=== PATIENT | male | born 1970 | race Caucasian/White ===

== ENCOUNTER 2024-05-14 04:07 | Inpatient (IN) | payer OTHER ==
[2024-05-11 10:36] VITALS: BMI 29.1
[2024-05-14] MEDS ORDERED: GENTAMICIN SO4 80 MG/2 ML VIAL ONE (06:36)
[2024-05-14] MEDS ORDERED: VANCOMYCIN 1,000 MG VIAL (RESTRICTED TO ID ONLY) ONE (06:36)
[2024-05-14] MEDS ORDERED: BUPIVACAINE LIPOSOME/PF (EXPAREL) 266 MG/20 ML VIAL ONE (06:36)
[2024-05-14] MEDS ORDERED: LIDOCAINE 1%/EPI 1:100000 (20 ML MULTI DOSE VIAL) ONE (06:36)
[2024-05-14] MEDS ORDERED: BUPIVACAINE HCL/PF 0.5% (5MG/ML) 10 ML VIAL ONE (06:36)
[2024-05-14] MEDS: LIDOCAINE 1%/EPI 1:100000 (20 ML MULTI DOSE VIAL) IJ ONE ×2 (07:02→08:58)
[2024-05-14] MEDS: VANCOMYCIN 1 GM in D5W (PRE-DOCKED) 1,000 MG/250 ML (RESTRICTED TO ID ONLY IVPB ONE ×4 (07:04→11:08)
[2024-05-14] MEDS: ceFAZolin SODIUM 1 GM VIAL IVPB ONE ×2 (07:04→08:50)
[2024-05-14] MEDS ORDERED: MIDAZOLAM HCL 2 MG/2 ML SINGLE DOSE VIAL ONE (08:10)
[2024-05-14] MEDS ORDERED: PROPOFOL 40 ML ONE (08:17)
[2024-05-14] MEDS ORDERED: ROCURONIUM BROMIDE 50 MG/5 ML SYRINGE ONE ×2 (08:39→09:25)
[2024-05-14] MEDS: THROMBIN (BOVINE) 5,000 UNIT VIAL TP ONE ×2 (09:20→09:50)
[2024-05-14] MEDS: GENTAMICIN SO4 80 MG/2 ML VIAL IVPB ONE ×2 (09:23→10:00)
[2024-05-14] MEDS: HYDROGEN PEROXIDE 473 ML PO ONE ×2 (09:23→10:00)
[2024-05-14] MEDS: BUPIVACAINE LIPOSOME/PF (EXPAREL) 266 MG/20 ML VIAL NR ONE ×2 (10:56→11:30)
[2024-05-14] MEDS: BUPIVACAINE HCL/PF 0.5% (5MG/ML) 10 ML VIAL IJ ONE ×2 (10:57→11:30)
[2024-05-14] MEDS ORDERED: HYDROmorphone HCl 2 MG/ML VIAL ONE (11:19)
[2024-05-14] MEDS ORDERED: morphine CARPU-JECT 4 MG/1 ML DISP.SYRIN IVPUSH PRN (11:48)
[2024-05-14] MEDS ORDERED: diphenhydrAMINE HCL 25 MG CAPSULE (FP) PO PRN (11:48)
[2024-05-14] MEDS ORDERED: ONDANSETRON 4 MG/2 ML VIAL IVPUSH PRN (11:48)
[2024-05-14] MEDS: LACTATED RINGERS SOLUTION 1,000 ML IV SCH (12:51)
[2024-05-14] MEDS: LACTATED RINGERS SOLUTION 1,000 ML/1,000 ML INFUS.BAG IV SCH (12:53)
[2024-05-14] MEDS: DOCUSATE SODIUM 100 MG CAPSULE (FP) PO SCH (14:45)
[2024-05-14] MEDS: HEPARIN NA (PORCINE) 5,000 UNITS/ML 1ML VIAL SQ SCH (14:45)
[2024-05-14] MEDS: oxyCODONE HCL 5 MG TABLET PO PRN ×2 (15:09→17:49)
[2024-05-14] MEDS: CEFAZOLIN 1 GM in DEXTROSE 5%-WATER - 50 ML IVPB SCH (15:11)
[2024-05-14] MEDS: ACETAMINOPHEN 1000 MG/100 ML BAG IVPB SCH (20:07)
[2024-05-15] MEDS: morphine SULFATE 4 MG/ML VIAL IVPUSH PRN (02:15)
[2024-05-15] MEDS: HYDROmorphone *PCA* 10MG/50ML DISP.SYRIN PCA SCH (04:58)
[2024-05-15 08:53] LABS: HEMATOCRIT 35.3 % (35.4-49); MCH 30.5 pg (25.7-33.7); MCHC 34.2 g/dl (32.0-35.9); MEAN CELL VOLUME 89.4 fl (80-96); MEAN PLT VOLUME 7.4 fl (7.5-11.1); PLATELET COUNT 238 10^3/uL (134-434); RBC 3.94 M/mm3 (4.00-5.60); RDW 13.5 % (11.9-15.9); WHITE BLOOD COUNT 9.6 K/mm3 (4.0-10.0)
[2024-05-15 09:15] LABS: POTASSIUM 3.7 mmol/L (3.5-5.1)
[2024-05-15 09:34] LABS: CALCIUM 8.7 mg/dL (8.5-10.1)
[2024-05-15 09:35] LABS: BLOOD UREA NITROGEN 4.2 mg/dL (7-18)
[2024-05-15 09:38] LABS: CREATININE 0.7 mg/dL (0.55-1.3)
[2024-05-15] MEDS: FERROUS SO4 325 MG TABLET (FP) PO SCH (10:00)
[2024-05-15] MEDS: FOLIC ACID 1 MG TABLET (FP) PO SCH (10:00)
[2024-05-15] MEDS: HEPARIN NA (PORCINE) 5,000 UNITS/ML 1ML VIAL SQ SCH (10:00)
[2024-05-15] MEDS: GABAPENTIN 300 MG CAPSULE PO SCH (13:31)
[2024-05-15] MEDS: LIDOCAINE 5% TOPICAL PATCH TP SCH (13:31)
[2024-05-15] MEDS: ACETAMINOPHEN 325 MG TABLET (FP) PO PRN (14:16)
[2024-05-15] MEDS: LIDOCAINE PATCH REMOVAL MC SCH (21:22)
[2024-05-16] MEDS: oxyCODONE HCL 5 MG TABLET PO PRN (15:13)
[2024-05-17 08:18] LABS: POTASSIUM 3.9 mmol/L (3.5-5.1)
[2024-05-17 08:20] LABS: BLOOD UREA NITROGEN 11.1 mg/dL (7-18); CALCIUM 8.9 mg/dL (8.5-10.1)
[2024-05-17 08:23] LABS: CREATININE 0.7 mg/dL (0.55-1.3)
[2024-05-17 08:28] LABS: BASO % 0.1 % (0-2.0); HEMOGLOBIN 11.1 GM/dL (11.7-16.9); LYMPH % 4.1 % (8-40); MCH 30.9 pg (25.7-33.7); MCHC 34.7 g/dl (32.0-35.9); MEAN CELL VOLUME 89.1 fl (80-96); MONO % 5.8 % (3.8-10.2); PLATELET COUNT 236 10^3/uL (134-434); RDW 13.2 % (11.9-15.9)
[2024-05-18 08:24] LABS: HEMATOCRIT 31.9 % (35.4-49); HEMOGLOBIN 10.9 GM/dL (11.7-16.9); MCH 30.7 pg (25.7-33.7); MCHC 34.1 g/dl (32.0-35.9); MEAN CELL VOLUME 90.1 fl (80-96); MEAN PLT VOLUME 7.5 fl (7.5-11.1); PLATELET COUNT 301 10^3/uL (134-434); POTASSIUM 3.7 mmol/L (3.5-5.1); RBC 3.55 M/mm3 (4.00-5.60); RDW 12.9 % (11.9-15.9); WHITE BLOOD COUNT 8.2 K/mm3 (4.0-10.0)
[2024-05-18 08:28] LABS: CALCIUM 9.1 mg/dL (8.5-10.1)
[2024-05-18 08:29] LABS: BLOOD UREA NITROGEN 14.2 mg/dL (7-18)
[2024-05-18 08:31] LABS: ALBUMIN 2.6 g/dl (3.4-5.0)
[2024-05-18 08:32] LABS: CREATININE 0.6 mg/dL (0.55-1.3)
[2024-05-18 08:34] LABS: TOT PROT 6.4 g/dl (6.4-8.2)
[2024-05-18 09:32] VITALS: RESP 18
[2024-05-18] MEDS ORDERED: ACETAMINOPHEN 500 MG TABLET (FP) PO PRN (09:42)
[2024-05-18] MEDS: valACYclovir HCL 500 MG TABLET (FP) PO SCH (10:11)
[2024-05-18 14:23] VITALS: BP 123/82; TEMP 98.6
[2024-05-18 17:24] VITALS: PULSE 89
== END 2024-05-18 18:53 | disposition home or self-care (01) | DRG 304 ==
LOC: J2C 04:07 → J4S 14:01
PROVIDERS: ADMIT Family Medicine; ATTEND Family Medicine
PROC: 0SG0071 Fusion of Lumbar Vertebral Joint with Autologous Tissue Substitute, Posterior Approach, Posterior Column, Open Approach (ICD-10-PCS; 2024-05-14)
PROC: 0SB20ZZ Excision of Lumbar Vertebral Disc, Open Approach (ICD-10-PCS; 2024-05-14)
PROC: 0SG30AJ Fusion of Lumbosacral Joint with Interbody Fusion Device, Posterior Approach, Anterior Column, Open Approach (ICD-10-PCS; 2024-05-14)
PROC: 0SG30K1 Fusion of Lumbosacral Joint with Nonautologous Tissue Substitute, Posterior Approach, Posterior Column, Open Approach (ICD-10-PCS; 2024-05-14)
PROC: 0SB40ZZ Excision of Lumbosacral Disc, Open Approach (ICD-10-PCS; 2024-05-14)
PROC: 4A11X4G Monitoring of Peripheral Nervous Electrical Activity, Intraoperative, External Approach (ICD-10-PCS; 2024-05-14)
PROC: 0SG00AJ Fusion of Lumbar Vertebral Joint with Interbody Fusion Device, Posterior Approach, Anterior Column, Open Approach (ICD-10-PCS; principal; 2024-05-14 08:00)
DX: M47.896 Other spondylosis, lumbar region (principal); M48.061 Spinal stenosis, lumbar region without neurogenic claudication; M47.897 Other spondylosis, lumbosacral region; M51.36 Other intervertebral disc degeneration, lumbar region; M51.37 Other intervertebral disc degeneration, lumbosacral region; R50.82 Postprocedural fever; R20.2 Paresthesia of skin; B00.1 Herpesviral vesicular dermatitis; D72.829 Elevated white blood cell count, unspecified
CPT/HCPCS: 36415; 71045-TC-FY; 72131-TC; 76000-TC-FY; 80048; 80053; 85025; 85027; 86850; 86900; 86901; 87040; 87086; 94010; 94760; 97116-GP; 97161-GP; C1713; C1789; C1889; J0131; J1644